=== PATIENT | male | born 1975 | race Caucasian/White ===

== ENCOUNTER 2016-12-28 09:54 | Emergency (ER) | payer SELFPAY ==
[2016-12-28 10:31] VITALS: BP 164/74
--- NOTE | 2016-12-28 11:39 | UC ---
Malgorzata Soto Matthew, scribed for RejiVishal perez MD on 12/28/16 at 1125 . Skin Complaint HPI - HPI Summary HPI Summary: Nurse's Note: pt thinks he has shingles. states 1 week ago pt developed red, painful rash to right side of abdomen/side. pt states pain started before the rash appeared. pt has also had an URI recently MD Note: Pulse oxygen 100%, 5/10 pain, heavy smoker, alcohol ingestion In Room Note: A 41 y/o male presents to [facility] a right sided flank rash since two days ago. The pain is rated 5/10 in severity and described as burning and prickly. He denies itchiness, dysuria, SOB, chest tightness. Associated symptoms include lower back pain, productive cough, and chest congestion. The patient has been ill for the past week. Hx of chicken poxs as a child. 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 No hospitalizations. - History of Current Complaint Chief Complaint: UCSkin Time Seen by Provider: 12/28/16 11:09 Stated Complaint: SHINGLES? Hx Obtained From: Patient Onset/Duration: Lasting Days, Still Present Skin Exposure Onset/Duration: Days Ago Timing: Constant Onset Severity: Moderate Current Severity: Moderate Pain Intensity: 5 Pain Scale Used: 0-10 Numeric Location: Other - right flank Character: Pain Associated Signs & Symptoms: Positive: Cough - productive, Rash. Negative: Difficulty Breathing, Chest Pain - Allergy/Home Medications Allergies/Adverse Reactions: Allergies Allergy/AdvReac Type Severity Reaction Status Date / Time No Known Allergies Allergy Verified 12/28/16 10:31 Review of Systems Constitutional: Negative Skin: Other - Right Flank Rash Eyes: Negative ENT: Negative Respiratory: Cough - Productive, Other - chest congestion Cardiovascular: Negative Gastrointestinal: Negative Genitourinary: Negative Motor: Negative Neurovascular: Negative Musculoskeletal: Myalgia - lower back pain Neurological: Negative Psychological: Negative All Other Systems Reviewed And Are Negative: Yes PMH/Surg Hx/FS Hx/Imm Hx Endocrine History Of: Denies: Diabetes, Thyroid Disease Cardiovascular History Of: Denies: Cardiac Disorders, Hypertension Respiratory History Of: Denies: COPD, Asthma GI/ History Of: Denies: Ulcer - Surgical History Surgical History: Yes Surgery Procedure, Year, and Place: bone spur L ankle, 7th grade - Family History Known Family History: Negative: Diabetes, Other - NO FAMILY HISTORY OF HERNIA - Social History Alcohol Use: Daily Alcohol Amount: 12 beers daily Substance Use Type: Marijuana Substance Use Comment - Amount & Last Used: weekly Smoking Status (MU): Heavy Every Day Tobacco Smoker Type: Cigarettes Amount Used/How Often: 1/2 - 1 PPD - Immunization History Most Recent Influenza Vaccination: doesn't get Physical Exam Triage Information Reviewed: Yes Appearance: No Pain Distress, Well-Nourished Vital Signs: Initial Vital Signs Temp 98.8 F 12/28/16 10:28 Pulse 68 12/28/16 10:28 Resp 17 12/28/16 10:28 BP 164/74 12/28/16 10:28 Pulse Ox 100 12/28/16 10:28 Vital Signs Reviewed: Yes Eyes: Positive: Conjunctiva Clear ENT: Positive: Hearing grossly normal, Pharynx normal, TMs normal. Negative: Muffled/hoarse voice Neck: Positive: Supple, Nontender Respiratory: Positive: Chest non-tender, Lungs clear, Normal breath sounds, No respiratory distress Cardiovascular: Positive: RRR, No Murmur Abdomen Description: Positive: Nontender, No Organomegaly, Soft Bowel Sounds: Positive: Present Musculoskeletal: Positive: Strength Intact Neurological: Positive: Alert Psychological: Positive: Age Appropriate Behavior Skin: Positive: Other - DERMATOME T12 MACULOPAPULAR RASH MOVING AROUND FROM THE MIDLINE TO THE RIGHT ANTERIOR AXILLAR LINE. THIS RASH HAS SCATTER VESICLES AND LOOKS TYPICALLY LIKE ZOSTER. No rash near the eyes or on the face. Course/Dx - Differential Diagnoses - Skin Complaint Differential Diagnoses: Other - Bronchitis vs pneumonia ; dermatitis vs shingles - Diagnoses Provider Diagnoses: Herpes zoster on the right side at the level of T12, bronchitis in a heavy smoker Discharge - Discharge Plan Condition: Stable Disposition: HOME Prescriptions: Acyclovir [Zovirax] 800 mg PO Q4HR #35 tab MDD 5 Azithromycin TAB* [Zithromax TAB*] 250 mg PO DAILY #6 tab Lidocaine PATCH 5%* [Lidoderm 5% Patch*] 1 patch TRANSDERM DAILY #14 patch MDD 2 A DAY Triamcinolone 0.5% CREAM(NF) [Triamcinolone 0.5% CREAM*] 1 applic TOPICAL BID # 30 gm Patient Education Materials: Shingles (ED), Acute Bronchitis (ED) Referrals: Bailey Bermudez MD [Primary Care Provider] - Additional Instructions: WE DISCUSSED: 1. You have shingles and bronchitis. Try to cut down on the smoking; begin zithromax for five days. 2. SHINGLES: SHINGLES: RIGHT LOWER BACK You have shingles. Shingles is caused by the chicken pox virus, The virus has been surviving dormant in a nerve cell since you had chicken pox years ago. The virus has spread down a nerve root to reach the skin. Typically, an band-like area of pain and skin sensitivity develops, then small blisters erupt in the area. Shingles lasts two or three weeks, but sometimes leaves persistent pain. You are contagious -- you can give children chicken pox. But you can't give anyone shingles. Antiviral medicines (such as acyclovir or famciclovir) can help, but the rash usually worsens for about a week. Pain medication is often given if the area hurts. Antihistamines such as Benadryl may be necessary for itching if it does not respond to soda baths and calamine lotion. Sometimes cortisone medicine or nerve-block shots are necessary if pain is severe. If the area remains severely painful as the sores heal, or if you suspect an infection developing in the sores, see your doctor. As we discussed: if you have new or increasing pain, go to ED. You can use Benadryl cream and calamine lotion to area.. Also: Moist aveeno soaks can give relief. ACYCLOVIR: 800mg SIG: five times a day for seven days. Triamcinolone 0.1% cream Label: apply to involved skin three times daily as needed Also: LIDODERM PATCH #30; PLACE ONE ON PAIN AREA FOR 12 HOURS. YOU CAN USE TWO A DAY. The documentation as recorded by the Malgorzata daugherty Matthew accurately reflects the service I personally performed and the decisions made by , Vishal Ayoub MD.
== END 2016-12-28 11:52 | disposition home or self-care (01) ==
LOC: UCEAST 09:54
DX: B02.9 Zoster without complications (principal); J40 Bronchitis, not specified as acute or chronic; F17.290 Nicotine dependence, other tobacco product, uncomplicated; F12.10 Cannabis abuse, uncomplicated
CPT/HCPCS: 99212; G0463

== ENCOUNTER 2019-12-08 09:29 | Emergency (ER) | payer BC ==
[2019-12-08 10:02] VITALS: BP 134/82
--- NOTE | 2019-12-08 12:09 | UC ---
Throat Pain/Nasal Michael HPI - HPI Summary HPI Summary: 44-year-old male presents with complaints of bilateral ear fullness. States for the past week he has been having cold-like symptoms including nasal congestion, sinus pressure, runny nose, and sore throat. Reports that his URI symptoms are improving and almost completely subsided however over the past couple of days his ears have become very plugged. States started in the right ear but is now affecting the left ear as well. Denies fever, chills, ear drainage, ear pain, dizziness, vertigo, or hearing loss. - History of Current Complaint Chief Complaint: UCGeneralIllness Stated Complaint: SINUS AND JAW PRESSURE Time Seen by Provider: 12/08/19 11:54 Hx Obtained From: Patient Pain Intensity: 1 - Allergies/Home Medications Allergies/Adverse Reactions: Allergies Allergy/AdvReac Type Severity Reaction Status Date / Time No Known Allergies Allergy Verified 12/28/16 10:31 Home Medications: Home Medications NK [No Home Medications Reported] 12/08/19 [History Confirmed 12/08/19] PMH/Surg Hx/FS Hx/Imm Hx Previously Healthy: Yes - Denies significant PMH - Surgical History Surgical History: Yes Surgery Procedure, Year, and Place: bone spur L ankle, 7th grade. Herinated L2 - Family History Known Family History: Negative: Diabetes, Other - NO FAMILY HISTORY OF HERNIA - Social History Occupation: Employed Full-time Lives: With Family Alcohol Use: Daily Alcohol Amount: 12 beers daily Substance Use Type: Marijuana Substance Use Comment - Amount & Last Used: weekly Smoking Status (MU): Heavy Every Day Tobacco Smoker Type: Cigarettes Amount Used/How Often: 1/2 - 1 PPD - Immunization History Most Recent Influenza Vaccination: doesn't get Review of Systems All Other Systems Reviewed And Are Negative: Yes Constitutional: Negative: Fever, Chills, Fatigue Eyes: Negative: Drainage, Eye Redness ENT: Positive: Other - See HPI Respiratory: Negative: Shortness Of Breath, Cough Cardiovascular: Negative: Palpitations, Chest Pain Gastrointestinal: Negative: Abdominal Pain, Vomiting, Diarrhea, Nausea Genitourinary: Positive: Negative Musculoskeletal: Positive: Negative Neurological: Positive: Negative Is Patient Immunocompromised?: No Physical Exam - Summary Physical Exam Summary: GENERAL APPEARANCE: Well developed, well nourished, alert and cooperative, and appears to be in no acute distress. EYES: Conjunctiva clear. No drainage. EARS: Left external auditory canal clear. Left TM dull with air bubbles noted. Right external auditory canal with cerumen impaction. TM not visualized. NOSE: No nasal discharge. THROAT: Pharynx normal. No tonsilar inflammation, swelling, exudate, or lesions. Uvula midline. NECK: Neck supple, non-tender without lymphadenopathy. CARDIAC: Normal S1 and S2. No S3, S4 or murmurs. Rhythm is regular. There is no peripheral edema, cyanosis or pallor. Extremities are warm and well perfused. Capillary refill is less than 2 seconds. Peripheral pulses intact. LUNGS: Clear to auscultation without rales, rhonchi, wheezing or diminished breath sounds. ABDOMEN: Positive bowel sounds. Soft, nondistended, nontender. No guarding or rebound. No masses or hepatosplenomegally. MUSKULOSKELETAL: ROM intact to all extremities. No joint erythema or tenderness. Normal muscular development. Normal gait. SKIN: Skin normal color, texture and turgor with no lesions or eruptions. Triage Information Reviewed: Yes Vital Signs: Initial Vital Signs Temp 98.7 F 12/08/19 09:56 Pulse 92 12/08/19 09:56 Resp 18 12/08/19 09:56 BP 134/82 12/08/19 09:56 Pulse Ox 100 12/08/19 09:56 Vital Signs Reviewed: Yes Throat Pain/Nasal Course/Dx - Course Course Of Treatment: 44-year-old male presents with complaints of bilateral ear fullness. States for the past week he has been having cold-like symptoms including nasal congestion, sinus pressure, runny nose, and sore throat. Reports that his URI symptoms are improving and almost completely subsided however over the past couple of days his ears have become very plugged. States started in the right ear but is now affecting the left ear as well. Denies fever, chills, ear drainage, ear pain, dizziness, vertigo, or hearing loss. Afebrile. Vital signs stable. On exam patient was noted to have a clear left external auditory canal with a dull TM with air bubbles while the right external auditory canal had a cerumen impaction in the TM was not visualized. Remainder of his exam was unremarkable. The RN irrigated the right ear and was able to successfully cleared the cerumen impaction. Post irrigation he was noted to have an intact TM was dull with a few air bubbles. I discussed with the patient that his symptoms were consistent with a serous otitis secondary to eustachian tube dysfunction likely from his recent URI. Recommending that he start fluticasone nasal spray 2 sprays each nostril once daily for at least the next 2 weeks. He is to follow-up with his primary care provider in one week if symptoms are not improving. Anticipatory guidance and warning symptoms are reviewed with the patient. Verbalizes understanding and agrees with plan of care. - Differential Dx/Diagnosis Differential Diagnosis/HQI/PQRI: Influenza, Sinusitis, URI Provider Diagnosis: Right ear impacted cerumen, Bilateral serous otitis media Discharge ED - Sign-Out/Discharge Documenting (check all that apply): Patient Departure All imaging exams completed and their final reports reviewed: No Studies - Discharge Plan Condition: Stable Disposition: HOME Patient Education Materials: Cerumen Impaction (ED), Serous Otitis Media (ED) Referrals: Bailey Bermudez MD [Primary Care Provider] - 7 Days (If no improvement.) Additional Instructions: The excess earwax that was in your right ear canal was successfully irrigated and removed. There is some mild irritation of the ear canal secondary to the impacted earwax that should clear up within a few days. Try to avoid getting any water in the ear. There was evidence of some fluid behind both eardrums are likely related to your recent cold symptoms. This is a condition called serous otitis which is not in infectious process but related to some eustachian tube dysfunction. Start fluticasone (Flonase) nasal spray 2 sprays each nostril once daily at least for the next 2 weeks to try to reduce any inflammation lower for the eustachian tubes to open and the fluid to drain. Take acetaminophen (Tylenol) or ibuprofen (Advil, Motrin) according directions as needed for any pain or discomfort. Follow-up with your primary care provider in 7 days if symptoms are not improving. Seek immediate medical attention if you develop persistent fever greater than 100.5 F, severe ear pain, drainage or blood from the ear, loss of hearing, persistent dizziness, or any worsening of symptoms. - Billing Disposition and Condition Condition: STABLE Disposition: Home
== END 2019-12-08 13:09 | disposition home or self-care (01) ==
LOC: UCEAST 09:29
DX: H65.93 Unspecified nonsuppurative otitis media, bilateral (principal); H61.21 Impacted cerumen, right ear; F17.210 Nicotine dependence, cigarettes, uncomplicated
CPT/HCPCS: 99212; G0463

== ENCOUNTER 2019-12-22 15:29 | Emergency (ER) | payer BC ==
[2019-12-22 16:43] VITALS: BP 159/99
[2019-12-22 17:07] LABS: Influenza A Molecular POSITIVE (Negative)
--- NOTE | 2019-12-22 17:11 | UC ---
FLU HPI - HPI Summary HPI Summary: 44 yo male presents with flu-like symptoms. He tells me that yesterday he developed fever, fatigue, body aches, cough, and nausea. He did not get a flu shot this year. Took theraflu with little relief. He is eating and drinking and tolerating po, but states decreased appetite. Denies sore throat, SOB, chest pain, abdominal pain, back pain. He does smoke daily. - History of Current Complaint Chief Complaint: UCGeneralIllness Stated Complaint: FEVER, HEADACHE, CONGESTION Time Seen by Provider: 12/22/19 17:11 Hx Obtained From: Patient Onset/Duration: Sudden Onset Severity Currently: Mild Severity Initially: Mild Pain Intensity: 5 Pain Scale Used: 0-10 Numeric - Allergy/Home Medications Allergies/Adverse Reactions: Allergies Allergy/AdvReac Type Severity Reaction Status Date / Time No Known Allergies Allergy Verified 12/22/19 16:41 Home Medications: Home Medications D-Methorphan/PE/Acetaminophen [Theraflu Ms Severe Cold Pckt] 1 dose PO ONCE PRN 12/22/19 [History Confirmed 12/22/19] Oseltamivir CAP* [Tamiflu CAP*] 75 mg PO BID #10 cap 12/22/19 [Rx] PMH/Surg Hx/FS Hx/Imm Hx - Additional Past Medical History Additional PMH: None - Surgical History Surgical History: Yes Surgery Procedure, Year, and Place: bone spur L ankle, 7th grade. Herniated L2 - Family History Known Family History: Negative: Diabetes, Other - NO FAMILY HISTORY OF HERNIA - Social History Occupation: Employed Full-time Lives: With Family Alcohol Use: Daily Alcohol Amount: 6 beers daily Substance Use Type: Marijuana Substance Use Comment - Amount & Last Used: weekly Smoking Status (MU): Heavy Every Day Tobacco Smoker Type: Cigarettes Amount Used/How Often: 1/2 - 1 PPD - Immunization History Most Recent Influenza Vaccination: doesn't get Review of Systems All Other Systems Reviewed And Are Negative: No Constitutional: Positive: Fever, Chills, Fatigue, Other - Body aches Skin: Positive: Negative Eyes: Positive: Negative ENT: Positive: Nasal Discharge Respiratory: Positive: Cough Cardiovascular: Positive: Negative Gastrointestinal: Positive: Negative Genitourinary: Positive: Negative Neurological/Mental Status: Positive: Negative Psychological: Positive: Negative Physical Exam - Summary Physical Exam Summary: GENERAL: NAD. WDWN. No pain distress. SKIN: No rashes, sores, lesions, or open wounds. HEENT: Head: AT/NC Eyes: EOM intact. Conjunctiva clear without inflammation or discharge. Ears: Hearing grossly normal. TMs intact, no bulging, erythema, or edema. Nose: Nasal mucosa pink and moist. NTTP maxillary and frontal sinus. Throat: Posterior oropharynx without exudates, erythema, or tonsillar enlargement. Uvula midline. NECK: Supple. Nontender. No lymphadenopathy. CHEST: Mild wheezing throughout. No accessory muscle use. Breathing comfortably and in no distress. CV: RRR. Pulses intact. Cap refill <2seconds NEURO: Alert. PSYCH: Age appropriate behavior. Triage Information Reviewed: Yes Vital Signs: Initial Vital Signs Temp 102.1 F 12/22/19 16:38 Pulse 87 12/22/19 16:38 Resp 18 12/22/19 16:38 BP 159/99 12/22/19 16:38 Pulse Ox 100 12/22/19 16:38 Laboratory Tests 12/22/19 17:03 Influenza A (Rapid) Positive H Vital Signs Reviewed: Yes Diagnostics - Radiology CXR Radiology Interpretation Completed By: ED Physician Summary of Radiographic Findings: Wet read negative Flu Course/Dx - Course Course Of Treatment: CXR wet read negative POC flu positive. Rx for tamiflu. - Differential Dx/Diagnosis Provider Diagnosis: Influenza Discharge ED - Sign-Out/Discharge Documenting (check all that apply): Patient Departure All imaging exams completed and their final reports reviewed: Yes - Discharge Plan Condition: Stable Disposition: HOME Prescriptions: Oseltamivir CAP* [Tamiflu CAP*] 75 mg PO BID #10 cap Patient Education Materials: Influenza (ED) Referrals: Bailey Bermudez MD [Primary Care Provider] - Additional Instructions: If you develop a fever, shortness of breath, chest pain, new or worsening symptoms - please call your PCP or go to the ED immediately. Your blood pressure was high at todays visit. Please see your primary provider within 4 weeks for recheck and re-evaluation. Most people with the flu recover within one to two weeks without treatment. However, serious complications of the flu can occur. Go to the ER immediately if you: -- You feel short of breath or have trouble breathing -- You have pain or pressure in your chest or stomach -- You have signs of being dehydrated, such as dizziness when standing or not passing urine -- You feel confused -- You cannot stop vomiting or you cannot drink enough fluids There are several groups of people who are at increased risk for flu complications. These include women, young children (<5 years of age and especially <2 years of age), people older than 65 years of age, and people with certain diseases such as chronic lung disease (such as asthma), heart disease, diabetes, immunosuppressing conditions (such as HIV infection or transplantation), and some other diseases. Treat symptoms Treating the symptoms of influenza can help you to feel better but will not make the flu go away faster. -- Rest until the flu is fully resolved, especially if the illness has been severe. -- Fluids Drink enough fluids so that you do not become dehydrated. One way to transit vehicle inspector if you are drinking enough is to look at the color of your urine. Normally, urine should be light yellow to nearly colorless. If you are drinking enough, you should pass urine every three to five hours. -- Acetaminophen (sample brand name: Tylenol) can relieve fever, headache, and muscle aches. Aspirin and medicines that include aspirin (eg, bismuth subsalicylate [sample brand name: Pepto-Bismol]) are not recommended for children under 18 because aspirin can lead to a serious disease called Susi syndrome. -- Cough medicines are not usually helpful; cough usually resolves without treatment. We do not recommend cough or cold medicine for children under age 6 years. Antiviral treatment Antiviral medicines can be used to treat or prevent influenza. When used as a treatment, the medicine does not eliminate flu symptoms, although it can reduce the severity and duration of symptoms by about one day. Not every person with influenza needs an antiviral medicine, but some people do; the decision is based upon several factors. If you are severely ill and/or have risk factors for developing complications of influenza, you will need an antiviral agent. People who are only mildly ill and have no risk factors for complications usually do not need to be treated with antiviral medication. - Billing Disposition and Condition Condition: STABLE Disposition: Home
[2019-12-22] MEDS ORDERED: Acetaminophen TAB* 325 MG PO ONE (17:16)
== END 2019-12-22 18:01 | disposition home or self-care (01) ==
LOC: UCEAST 15:29
DX: J10.1 Influenza due to other identified influenza virus with other respiratory manifestations (principal); F17.210 Nicotine dependence, cigarettes, uncomplicated
CPT/HCPCS: 71046; 99212; A9270-GY; G0463

== ENCOUNTER 2020-02-16 16:31 | Emergency (ER) | payer BC ==
--- NOTE | 2020-02-16 17:37 | ED ---
Abdominal Pain/Male - HPI Summary HPI Summary: 44-year-old male with no significant past medical history presents to the emergency department today complaining of 10 out of 10 right-sided abdominal pain which began suddenly while at work 1 hour ago with associated nausea. At this time patient has 0 out of 10 pain and states his pain suddenly passed while in the waiting room. Patient originally believed he had appendicitis. Patient denies fever at this time. Patient has a positive family history of kidney stones in his mother and father. Patient denies personal or family history of gallstones. Patient denies modifying factors. Patient denies changes in bowel habits. Patient denies burning with urination or blood with urination. Patient denies anorexia. At this time patient denies fever, chest pain, abdominal pain, shortness of breath, pain with urination, rash, nausea, vomiting diarrhea. - History of Current Complaint Chief Complaint: EDAbdPain Stated Complaint: ABD PAIN PER PT Time Seen by Provider: 02/16/20 17:14 Hx Obtained From: Patient Onset/Duration: Sudden Onset, Lasting Hours Timing: Constant Severity Initially: Severe Severity Currently: Severe Pain Intensity: 10 Pain Scale Used: 0-10 Numeric Location: Diffuse - R sided abd pain Radiates: No Character: Sharp, Cramping Aggravating Factor(s): Nothing Alleviating Factor(s): Nothing Associated Signs And Symptoms: Positive: Decreased Appetite, Nausea. Negative: Fever, Cough, Chest Pain, Back Pain, Constipation, Blood in Stool, Urinary Symptoms, Vomiting, Diarrhea, Penile Discharge - Allergies/Home Medications Allergies/Adverse Reactions: Allergies Allergy/AdvReac Type Severity Reaction Status Date / Time No Known Allergies Allergy Verified 12/22/19 16:41 Home Medications: Home Medications D-Methorphan/PE/Acetaminophen [Theraflu Ms Severe Cold Pckt] 1 dose PO ONCE PRN 12/22/19 [History Confirmed 12/22/19] Oseltamivir CAP* [Tamiflu CAP*] 75 mg PO BID #10 cap 12/22/19 [Rx] PMH/Surg Hx/FS Hx/Imm Hx Endocrine/Hematology History: Denies: Hx Diabetes, Hx Thyroid Disease Cardiovascular History: Denies: Hx Hypertension Respiratory History: Denies: Hx Asthma, Hx Chronic Obstructive Pulmonary Disease (COPD) GI History: Denies: Hx Ulcer - Surgical History Surgery Procedure, Year, and Place: bone spur L ankle, 7th grade. Herniated L2 Infectious Disease History: No Infectious Disease History: Denies: Hx Hepatitis, Hx Human Immunodeficiency Virus (HIV), Hx Shingles, Traveled Outside the [place] in Last 30 Days - Family History Known Family History: Negative: Diabetes, Other - NO FAMILY HISTORY OF HERNIA - Social History Alcohol Use: Daily Alcohol Amount: 6 beers daily Substance Use Type: Reports: Marijuana Substance Use Comment - Amount & Last Used: weekly Smoking Status (MU): Heavy Every Day Tobacco Smoker Type: Cigarettes Amount Used/How Often: 1/2 - 1 PPD Review of Systems Constitutional: Negative Eyes: Negative ENT: Negative Cardiovascular: Negative Respiratory: Negative Positive: Abdominal Pain, Nausea. Negative: Vomiting, Diarrhea Genitourinary: Negative Musculoskeletal: Negative Skin: Negative Neurological/Mental Status: Negative Psychological: Normal All Other Systems Reviewed And Are Negative: Yes Physical Exam - Summary Physical Exam Summary: Patient is no acute distress. Inspection the abdomen revealed bowel masses or masses. Auscultation reveals normal active bowel sounds. Palpation the abdomen revealed no tenderness throughout. No CVA tenderness is noted. No tenderness at McBurney's point. Negative McBurney's, Rovsing, psoas, obturator , Merino's sign. Patient denies testicular pain or inguinal pain. Patient is asymptomatic at this time upon arrival in the emergency department. Triage Information Reviewed: Yes Vital Signs On Initial Exam: Initial Vitals Temp Pulse Resp BP Pulse Ox 99 F 108 18 175/130 99 02/16/20 16:41 02/16/20 16:41 02/16/20 16:41 02/16/20 16:41 02/16/20 16:41 Vital Signs Reviewed: Yes Appearance: Positive: Well-Appearing, No Pain Distress, Well-Nourished Skin: Positive: Warm, Skin Color Reflects Adequate Perfusion Eyes: Positive: EOMI, [place] ENT: Positive: Hearing grossly normal Respiratory/Lung Sounds: Positive: Clear to Auscultation, Breath Sounds Present. Negative: Stridor, Tracheal Deviation, Unable to speak in full sentences Cardiovascular: Positive: RRR, S1, S2 Abdomen Description: Positive: Nontender, Soft. Negative: CVA Tenderness (R), CVA Tenderness (L), Distended, Guarding, McBurney's Point Tenderness, Peritoneal Signs, Pulsatile Mass Bowel Sounds: Positive: Present Musculoskeletal: Positive: Strength/ROM Intact Neurological: Positive: Sensory/Motor Intact, Alert, Oriented to Person Place, Time Psychiatric: Positive: Normal, Affect/Mood Appropriate AVPU Assessment: Alert Procedures - Sedation Patient Received Moderate/Deep Sedation with Procedure: No Diagnostics - Vital Signs Vital Signs Temp Pulse Resp BP Pulse Ox 02/16/20 16:41 99 F 108 18 175/130 99 - Laboratory Result Diagrams: 02/16/20 17:40 02/16/20 17:40 Lab Statement: Any lab studies that have been ordered have been reviewed, and results considered in the medical decision making process. Abdominal Pain Male Course/Dx - Course Course Of Treatment: Patient was evaluated in the emergency department today for sudden onset right-sided abdominal pain which lasted approximately one hour but has subsided upon arrival in the emergency department. Vitals noted and stable. Patient afebrile. Laboratory studies were done and show no significant abnormalities including no leukocytosis, anemia, electrolyte disturbances. CRP is within normal limits. Lipase is within normal limits. Urinalysis shows No evidence of blood or UTI. CT of the abdomen and pelvis was done to evaluate possible kidney stone which shows no evidence of appendicitis. Hepatic flash filling hemangioma versus arterial venous shunt. Further evaluation of liver MRI is suggested. This MRI may be done on an outpatient basis as patient is considered low risk at this time. No evidence of kidney stone is appreciated. Patient appears to have no significant pathology at this time and patient continues to be symptomatic. Patient is discharged with outpatient follow-up for further evaluation and management of his symptoms as well as CT findings today in regards to his liver. - Diagnoses Differential Diagnosis/HQI/PQRI: Appendicitis, Constipation, Gall Bladder Disease, Renal Colic, Testicular Torsion, Ureteral Stone Provider Diagnoses: Abdominal pain - Critical Care Time Critical Care Statement: Critical care time is provided exclusive of any time spent performing procedures. Discharge ED - Sign-Out/Discharge Documenting (check all that apply): Patient Departure - Discharge Plan Condition: Stable Disposition: HOME Patient Education Materials: Acute Abdominal Pain (ED) Referrals: Bailey Bermudez MD [Primary Care Provider] - 3 Days Additional Instructions: There is no evidence of acute pathology requiring intervention at this time. Please follow-up with your primary care physician for further evaluation and management of your symptoms. The CT scan done during your stay today showed a likely benign liver finding and follow-up imaging is suggested with MRI. Please mention this and have this done through your primary care physician. Please return to this emergency department immediately should you develop any new or worsening symptoms. - Billing Disposition and Condition Condition: STABLE Disposition: Home
[2020-02-16] MEDS ORDERED: NS 0.9% 1000 ML** 1,000 ML IV ONE (17:58)
[2020-02-16 18:02] LABS: ABS Monocytes 0.3 10^3/ul (0-0.8); ABS Neutrophils 2.8 10^3/ul (1.5-7.7); Eosinophil % 0.9 %; Hematocrit 45 % (42-52); Hemoglobin 15.5 g/dL (14.0-18.0); Mean Corpuscular HGB Conc 34 g/dL (31-36); Mean Corpuscular Hemoglobin 31 pg (27-31); Mean Corpuscular Volume 91 fL (80-94); Mean Platelet Volume 7.2 fL (7.4-10.4); Nucleated Red Blood Cells % 0.2; Platelet Count 244 10^3/uL (150-450); Red Blood Count 4.99 10^6 /uL (4.18-5.48); Red Cell Distribution Width 14 % (10-15); White Blood Count 4.2 10^3/uL (3.5-10.8)
[2020-02-16 18:18] LABS: Albumin 4.6 g/dL (3.2-5.2); BUN/Creatinine Ratio 19.1 (8-20); Calcium 9.4 mg/dL (8.6-10.3); EGFR African American 111.8 (>60); EGFR Non-African American 92.4 (>60); Globulin 2.3 g/dL (2-4); Potassium 3.7 mmol/L (3.5-5.0); Total Bilirubin 0.9 mg/dL (0.2-1.0); Total Protein 6.9 g/dL (6.4-8.9)
[2020-02-16] MEDS ORDERED: Iohexol 300* (CONTRAST) 10 ML SDV IV ONE (18:25)
[2020-02-16 19:29] VITALS: BP 142/91
[2020-02-16 19:36] LABS: Urine Appearance Clear; Urine Bilirubin Negative (Negative); Urine Blood Negative (Negative); Urine Color Straw; Urine Glucose Negative (Negative); Urine Ketones Trace (Negative); Urine Nitrite Negative (Negative); Urine Protein Negative (Negative); Urine Specific Gravity 1.029 (1.010-1.030); Urine Urobilinogen Negative (Negative)
== END 2020-02-16 20:15 | disposition home or self-care (01) ==
LOC: ED 16:31
DX: R10.9 Unspecified abdominal pain (principal); R11.0 Nausea; F17.210 Nicotine dependence, cigarettes, uncomplicated
CPT/HCPCS: 36415; 74177; 80053; 81003; 83690; 85025; 86140; 96360; 99282; Q9967